=== PATIENT | female | born 1995 | race American Indian/Alaskan Native ===

== ENCOUNTER 2017-05-16 13:32 | Inpatient (IN) | payer OTHER ==
[2017-05-16] MEDS ORDERED: MINERAL OIL PO PRN (16:25)
[2017-05-16] MEDS ORDERED: BRETHINE SUB-Q PRN (16:25)
[2017-05-16] MEDS ORDERED: SUBLIMAZE IV PRN (16:25)
[2017-05-16] MEDS ORDERED: BRETHINE IVP PRN (16:25)
[2017-05-16] MEDS ORDERED: STADOL IV PRN (16:25)
[2017-05-16] MEDS ORDERED: XYLOCAINE 2% INFILTRATI ONE (16:25)
[2017-05-16] MEDS ORDERED: ePHEDrine SULFATE IV PRN ×2 (16:25→18:43)
[2017-05-16] MEDS ORDERED: PITOCin/NS 20 UNIT/1000ML DRIP 20 UNITS/1,000 ML BAG IV SCH (17:00)
[2017-05-16 17:02] LABS: Hematocrit 38.5 % (30.3-42.9); Hemoglobin 13.2 gm/dl (10.1-14.3); Mean Corpuscular HGB Conc 34 % (30-34); Mean Corpuscular Hemoglobin 32 pg (28-32); Mean Corpuscular Volume 93 fl (79-97); Platelet Count 255 K/mm3 (140-440); Red Blood Count 4.12 M/mm3 (3.65-5.03); Red Cell Distribution Width 14.4 % (13.2-15.2); White Blood Count 18.5 K/mm3 (4.5-11.0)
[2017-05-16] MEDS: LACTATED RINGERS 1,000 ML IV SCH ×2 (17:02→22:52)
--- NOTE | 2017-05-16 17:44 | History and Physical Report ---
History of Present Illness Date of examination: 05/16/17 Date of admission: 05/16/17 16:39 Chief complaint: I'm having contractions History of present illness: Patient is a 21 year old G1Po who presents in active labor at 39.1 weeks. Patient has had an uncomplicated course and transferred to [facility] at 30 weeks from [place]. Past History Past Medical History: no pertinent history Past Surgical History: no surgical history Social history: single - Obstetrical History Expected Date of Delivery: 05/22/17 Actual Gestation: 39 Week(s) 1 Day(s) : 1 Medications and Allergies Allergies Allergy/AdvReac Type Severity Reaction Status Date / Time No Known Allergies Allergy Verified 05/16/17 16:32 Home Medications Medication Instructions Recorded Confirmed Last Taken Type No Known Home Medications [No 05/16/17 05/16/17 Unknown History Reported Home Medications] Active Meds: Active Medications Butorphanol Tartrate (Stadol) 2 mg IV Q2H PRN PRN Reason: Pain , Severe (7-10) Last Admin: 05/16/17 17:01 Dose: 2 mg Fentanyl (Sublimaze) 100 mcg IV Q2H PRN PRN Reason: Labor Pain Lactated Ringer's (Lactated Ringers) 1,000 mls @ 125 mls/hr IV DIRECT CORINNA Last Admin: 05/16/17 17:02 Dose: 125 mls/hr Oxytocin/Sodium Chloride (Pitocin/Ns 20 Unit/1000ml Drip) 20 units in 1,000 mls @ 125 mls/hr IV DIRECT CORINNA Mineral Oil (Mineral Oil) 30 ml PO QHS PRN PRN Reason: Constipation Review of Systems All systems: negative Genitourinary: contractions - Vital Signs Vital signs: Vital Signs Pulse Pulse Ox 120 H 98 05/16/17 13:48 05/16/17 13:48 Temp Pulse Resp BP Pulse Ox 98.3 F 94 H 16 108/56 97 05/16/17 17:14 05/16/17 17:38 05/16/17 17:14 05/16/17 13:49 05/16/17 17:38 - Physical Exam Breasts: Cardiovascular: Regular rate, Normal S1, Normal S2 Lungs: Positive: Clear to auscultation, Normal air movement Abdomen: Positive: normal appearance, soft, normal bowel sounds. Negative: distention, tenderness Genitourinary (Female): Positive: normal external genitalia, normal perenium Vulva: both: normal Vagina: Positive: normal moisture. Negative: discharge Cervix: Negative: lesion, discharge Uterus: Positive: normal size, normal contour Adnexa: both: normal Anus/Rectum: Positive: normal perianal skin, heme negative. Negative: rectal mass, hemorrhoids Extremities: Deep Tendon Reflex Grade: Normal +2 - Obstetrical FHR: auscultation normal Cervical Dilatation: 4 Cervical Effacement Percentage: 80 station: -2 Uterine Contraction Pattern: Regular Uterine Contraction Intensity: Moderate Results Result Diagrams: 05/16/17 16:25 Abnormal lab results 05/16/17 Range/Units 16:25 WBC 18.5 H (4.5-11.0) K/mm3 All other labs normal. Assessment and Plan IUp at 39 weeks who presents in active labor. Admit to L&D. AROM when needed. Anticipate .
[2017-05-16] MEDS ORDERED: NARCAN 2 MG/2 ML IV PRN (18:43)
--- NOTE | 2017-05-16 18:44 | Anesthesia Consultation ---
Anesthesia Consult and Med Hx Date of service: 05/16/17 - Airway Anesthetic Teeth Evaluation: Good ROM Head & Neck: Adequate Mental/Hyoid Distance: Adequate Mallampati Class: Class II Intubation Access Assessment: Probably Good - Pulmonary Exam CTA: Yes - Cardiac Exam Cardiac Exam: RRR - Pre-Operative Health Status ASA Pre-Surgery Classification: ASA2 Proposed Anesthetic Plan: Epidural, Spinal - Pulmonary Hx Asthma: No COPD: No Hx Pneumonia: No - Cardiovascular System Hx Hypertension: No - Central Nervous System Hx Seizures: No Hx Psychiatric Problems: No - Endocrine Hx Renal Disease: No Hx End Stage Renal Disease: No Hx Hypothyroidism: No Hx Hyperthyroidism: No - Hematic Hx Anemia: No Hx Sickle Cell Disease: No - Additional Comments Anesthesia Medical History Comments: +IUP
[2017-05-16] MEDS ORDERED: fentaNYL-BUPIV 2 MCG/ML-0.125% 200 MCG/100 ML BAG EPIDURAL SCH (19:00)
[2017-05-16] MEDS ORDERED: XYLOCAINE MPF 2% ONE (19:53)
--- NOTE | 2017-05-17 01:44 | Procedure Note ---
OB Delivery Note - Delivery Date of Delivery: 05/17/17 Surgeon: NICOLE KIM Estimated blood loss: 200cc - Vaginal Delivery presentation: vertex Delivery position: OA Intrapartum events: none Delivery induction: none Delivery monitor: external FHT, external uterine Route of delivery: Delivery placenta: spontaneous Delivery cord: 3 umbilical vessels Episiotomy: none Delivery laceration: 1st degree Delivery repair: vicryl Anesthesia: epidural Delivery comments: Viable male delivered over intact perineum with apgars 2,4,8. Cord clamped and cut and placed on warmer. NICU called for assessment. transitioned well with NICU assistance. Placenta delivered spontaneously and intact with 3vc. Small vaginal laceration repaired with 2.0 vicryl. Excellent hemostasis achieved with IM pitocin because of iv infiltration. Patient tolerated procedure well. - Infant A at 1 minute: 8 at 5 minutes: 9 Infant Gender: Male (7 pounds 6 ounces, 20 inches)
[2017-05-17] MEDS ORDERED: TUCKS PAD TP PRN (03:11)
[2017-05-17] MEDS ORDERED: PHENERGAN PO PRN (03:11)
[2017-05-17] MEDS ORDERED: DULCOLAX PR PRN (03:11)
[2017-05-17] MEDS ORDERED: SODIUM CHLORIDE FLUSH SYRINGE 10 ML IV NR (03:11)
[2017-05-17] MEDS ORDERED: TYLENOL PO PRN (03:11)
[2017-05-17] MEDS ORDERED: PHENERGAN PR PRN (03:11)
[2017-05-17] MEDS ORDERED: LANSINOH TP PRN (03:11)
[2017-05-17] MEDS ORDERED: MILK OF MAGNESIA PO PRN (03:11)
[2017-05-17] MEDS ORDERED: ZOFRAN IV PRN (03:11)
[2017-05-17] MEDS ORDERED: BENADRYL PO PRN (03:11)
[2017-05-17] MEDS: NORCO 5/325 PO PRN ×2 (07:14→18:01)
[2017-05-17] MEDS: MOTRIN PO SCH ×2 (12:31→23:51)
[2017-05-17] MEDS: PRENATAL VITAMIN PO SCH (12:31)
[2017-05-17] MEDS: COLACE PO SCH ×2 (12:31→22:00)
[2017-05-17 14:04] LABS: Hematocrit 31.2 % (30.3-42.9); Hemoglobin 10.6 gm/dl (10.1-14.3)
[2017-05-18] MEDS: MOTRIN PO SCH ×2 (06:06→13:00)
--- NOTE | 2017-05-18 09:45 | Progress Note ---
Assessment and Plan PPD 1 s/p . Doing well. Will plan for discharge on today. Subjective - Subjective Date of service: 05/18/17 Interval history: Patient is a 21 year old G1Po who presents in active labor at 39.1 weeks. Patient has had an uncomplicated course and transferred to [facility] at 30 weeks from [place]. Patient reports: appetite normal, voiding normally, pain well controlled : doing well Objective - Vital Signs Latest vital signs: Vital Signs Temp Pulse Resp BP 05/18/17 07:40 98.8 F 88 20 104/70 05/18/17 00:30 98.6 F 73 20 114/61 05/17/17 16:24 98.8 F 80 20 118/62 05/17/17 11:24 98.8 F 84 20 130/84 Intake and Output 05/17/17 05/18/17 05/18/17 22:59 06:59 14:59 Intake Total 360 120 Output Total 800 Balance -440 120 Intake: Oral 120 Intake, Free Water 240 120 Output: Urine 800 Void 800 Other: Total, Intake Amount 120 Total, Output Amount 800 Voiding Method Toilet # Voids Void 1 1 - Exam Breasts: Present: deferred Cardiovascular: Present: Regular rate, Normal S1 Lungs: Present: Clear to auscultation, Normal air movement Abdomen: Present: normal appearance, soft, normal bowel sounds Vulva: both: normal Uterus: Present: normal, firm Extremities: Present: normal Deep Tendon Reflex Grade: Normal +2
--- NOTE | 2017-05-18 09:49 | Discharge Summary ---
Providers - Providers Date of Admission: 05/16/17 16:39 Date of discharge: 05/18/17 Attending physician: NICOLE KIM Primary care physician: NICOLE KIM Hospitalization Reason for admission: active labor Delivery: Episiotomy: midline Laceration: 1st degree complications: none Discharge diagnosis: IUP at term delivered baby: male Hospital course: unremarkable Condition at discharge: Good Disposition: DC-01 TO HOME OR SELFCARE Plan - Discharge Medications Prescriptions: Ibuprofen [Motrin 600 MG tab] 600 mg PO Q6H #40 tablet Vit-Fe Fumar-FA [ Vitamin] 1 each PO QDAY #30 tablet - Provider Discharge Summary Activity: routine, no sex for 6 weeks, no heavy lifting 4 weeks Diet: routine Instructions: routine Additional instructions: [] Smoking cessation referral if applicable(refer to patient education folder for contact #) [] Refer to [facility]'s [facility] Booklet Call your doctor immediately for: * Fever > 100.5 * Heavy vaginal bleeding ( >1 pad per hour) * Severe persistent headache * Shortness of breath * Reddened, hot, painful area to leg or breast * Drainage or odor from incision. * Keep incision clean and dry at all times and follow doctor's instructions regarding bathing/showering - Follow up plan Follow up: NICOLE KIM MD [Primary Care Provider] - 06/27/17
[2017-05-18 12:51] VITALS: BP 118/74
[2017-05-18] MEDS: COLACE PO SCH (13:00)
[2017-05-18] MEDS: PRENATAL VITAMIN PO SCH (13:00)
== END 2017-05-18 13:20 | disposition home or self-care (01) | DRG 775 ==
LOC: TRG 13:32 → LD 16:39 → TRG 16:39 → OB 05-17 03:09
PROVIDERS: ADMIT Obstetrics & Gynecology; ATTEND Obstetrics & Gynecology
PROC: 10E0XZZ Delivery of Products of Conception, External Approach (ICD-10-PCS; principal; 2017-05-17)
PROC: 00HU33Z Insertion of Infusion Device into Spinal Canal, Percutaneous Approach (ICD-10-PCS; 2017-05-17)
PROC: 3E0R3CZ (ICD-10-PCS; 2017-05-17)
PROC: 0HQ9XZZ Repair Perineum Skin, External Approach (ICD-10-PCS; 2017-05-17)
DX: O70.0 First degree perineal laceration during delivery (principal); Z37.0 Single live birth; Z3A.39 39 weeks gestation of pregnancy
CPT/HCPCS: 36415; 85014; 85018; 85027; 86850; 86900; 86901; 99211; A6250; G0463; J0595; J2590; J7120